=== PATIENT | female | born 1965 | race Caucasian/White ===

== ENCOUNTER 2019-12-20 10:56 | Outpatient (RCR) | payer BC ==
[~2019-12-20 10:56] MED LIST: PRO AIR INH; SYMBICORT 16010.2 GM INH
== END 2020-01-16 ==
LOC: PT 10:56
PROVIDERS: ATTEND Specialist
DX: S46.092A Other injury of muscle(s) and tendon(s) of the rotator cuff of left shoulder, initial encounter (principal)